=== PATIENT | female | born 1960 | race Caucasian/White ===

== ENCOUNTER 2025-05-23 12:23 | Emergency (ER) | payer OTHER ==
[~2025-05-23] VITALS: Ht 165.1 cm; Wt 99.3 kg
[2025-05-23] MEDS ORDERED: ADENOSINE 6 MG/2 ML SYR IV ONE (13:06)
[2025-05-23] MEDS: ADENOSINE 6 MG/2 ML SYR IV ONE (13:16)
[2025-05-23 13:17] LABS: PLATELET COUNT (AUTO) 282 K/uL (179-408); RED BLOOD CELL COUNT(AUTO) 4.34 MIL/uL (3.63-4.92); RED CELL DISTRIBUTION WIDTH 13.0 % (12.3-17.7); WHITE BLOOD COUNT (AUTO) 6.1 K/uL (3.8-11.8)
[2025-05-23] MEDS ORDERED: POTASSIUM BICARBONATE/CIT AC 25 MEQ TABLET.EFF ONE (13:19)
[2025-05-23 13:20] VITALS: BP 129/94
[2025-05-23] MEDS: DILTIAZEM HCL 25 MG IV IV ONE (13:20)
[2025-05-23] MEDS ORDERED: DILTIAZEM HCL 25 MG IV ONE (13:20)
[2025-05-23] MEDS ORDERED: MAGNESIUM SULFATE/D5W 300 ML ONE (13:20)
[2025-05-23] MEDS: MAGNESIUM SULFATE/D5W 100 ML IV SCH (13:25)
[2025-05-23] MEDS: POTASSIUM BICARBONATE/CIT AC 25 MEQ TABLET.EFF PO ONE (13:35)
[2025-05-23 13:39] LABS: CREATININE 0.8 mg/dL (0.6-1.3); SODIUM SERUM 146.0 mmol/L (136-145); UREA NITROGEN, BLOOD 13.0 mg/dL (7-18)
[2025-05-23] MEDS ORDERED: CYANOCOBALAMIN 1000 MCG/ML VIAL ONE (15:46)
[2025-05-23] MEDS: CYANOCOBALAMIN 1000 MCG/ML VIAL IM ONE (15:53)
[2025-05-23] MEDS: FUROSEMIDE 20 MG/2 ML VIAL IV ONE (16:42)
[2025-05-23] MEDS ORDERED: FUROSEMIDE 20 MG/2 ML VIAL ONE (16:44)
[2025-05-23 19:00] VITALS: BP 125/70; O2SAT 99
== END 2025-05-23 19:15 | disposition short-term general hospital (02) ==
LOC: ER 12:23
DX: I48.92 Unspecified atrial flutter (principal); I50.9 Heart failure, unspecified; E11.9 Type 2 diabetes mellitus without complications; R00.0 Tachycardia, unspecified; R07.9 Chest pain, unspecified; Z90.710 Acquired absence of both cervix and uterus; Z86.79 Personal history of other diseases of the circulatory system; Z91.013 Allergy to seafood
CPT/HCPCS: 99291; 96365; 96366; 96375; 71045; 80048; 82607; 82962; 83880; 83735; 84443; 85025; 85379; 84484; 36415; 93005 ×4; 96372; J0153; J3420; J3490; J1938; J3475; A4606; A4663